=== PATIENT | female | born 1990 | race Caucasian/White ===

== ENCOUNTER 2018-05-03 15:13 | Outpatient (CLI) | payer BC ==
--- NOTE | 2018-05-03 16:20 | RAD ---
FOUR VIEW MANDIBLE RADIOGRAPH SERIES: INDICATION: Pain of the mandible, jaw related to a recent injury. FINDINGS: There is no obvious posttraumatic dislocation of either temporomandibular joint. No discrete mandibu lar fracture. IMPRESSION: No acute osseous abnormality of the mandible identified. If there is persistent concern, followup imaging may be obtained as necessary. POS: RICCARDO
== END 2018-05-03 15:14 | disposition home or self-care (01) ==
LOC: SCSRAD 15:13
PROVIDERS: ATTEND Family Medicine
DX: S09.93XA Unspecified injury of face, initial encounter (principal); T74.91XA Unspecified adult maltreatment, confirmed, initial encounter
CPT/HCPCS: 70110

== ENCOUNTER 2022-03-14 14:57 | Outpatient (CLI) | payer BC | END 2022-03-14 14:58 | disposition home or self-care (01) | LOC: BICRAD 14:57 | PROVIDERS: ATTEND Family Medicine | DX: M54.50 Low back pain, unspecified (principal); M54.6 Pain in thoracic spine | CPT/HCPCS: 72072; 72110 ==

== ENCOUNTER 2023-06-22 13:07 | Outpatient (CLI) | payer BC, OTHER | END 2023-06-22 13:08 | disposition home or self-care (01) | LOC: ULT 13:07 | PROVIDERS: ATTEND Nurse Practitioner Family | DX: N32.81 Overactive bladder (principal); L68.9 Hypertrichosis, unspecified | CPT/HCPCS: 76856 ==